=== PATIENT | male | born 1990 | race Two or more races ===

== ENCOUNTER 2024-08-22 13:42 | Emergency (ER) | payer OTHER, SELFPAY ==
[2024-08-22 13:58] VITALS: BP 132/82; PULSE 98; RESP 20; TEMP 37.3; O2SAT 94
--- NOTE | 2024-08-22 14:03 | ED_ITS ---
HPI - General Adult General Chief complaint: Shortness of Breath/Dyspnea Stated complaint: Possible pneumonia Time Seen by Provider: 08/22/24 13:57 History of Present Illness HPI narrative: Arrives with cough, SOB, and generalized pain that started on Sunday, reports his is sick as well and was diagnosed with pneumonia. Alert and oriented, VSS, ABCs intact. 33-year-old man presenting to the emergency department with concern of cough and shortness of breath and achiness. Life partner was diagnosed with pneumonia with chest x-ray taken recently in this emergency department in [place] initiated on azithromycin. Since spouse had received 2 tablets of azithromycin emergency department, there were 2 left in her packet and so Maurizio has taken 2 tablets. Maurizio is concerned that he also has pneumonia. Most troubling for Maurizio is the cough and the phlegm in particular that is present in his throat; not exactly sore throat. Lots of headache with coughing. Achy all over. Has not specifically measured fever. No diarrhea. No rash. Related Data Home Medications ?Medication ?Instructions ?Recorded ?Confirmed No Known Home Medications 08/22/2408/05 Allergies Allergy/AdvReac Type Severity Reaction Status Date / Time No Known Drug Allergies Allergy Verified 08/22/24 13:53 Review of Systems Status of ROS: Reports: 6 or more systems reviewed and unremarkable except as noted in History and below [facility] Social History Smoking Status: Never smoker How often do you have a drink containing alcohol: 2-3 times a week AUDIT-C Alcohol total score: 3 Non-prescribed substance use: denies use Exam Narrative: Exam Narrative: Pleasant. Seems uncomfortable. Sounds congested in the nasopharynx. Some rhinorrhea. Lungs are clear. Heart in elevated rate but regular rhythm. No murmur rub or gallop. Oropharynx is moist. Some erythema posteriorly. Cobblestoning. Skin is warm a little clammy about the upper back. Well- perfused peripherally. No edema. Eyes are injected. Const: Vital Signs, click to edit/add: Vital Signs - 24 hr 08/22/24 13:58 Temperature 99.1 F Pulse Rate [Pulse Oximeter] 98 Respiratory Rate 20 Blood Pressure [Ri ght Upper Arm] 132/82 Pulse Oximetry 94 Oxygen Delivery Me thod Room Air Documenting provider has reviewed patient's vital signs: yes Course Vital Signs Vital signs: Initial Vital Signs Temperature 99.1 F 08/22/24 13:58 Temperature Source Temporal Artery Scan 08/22/24 13:58 Pulse Rate 98 08/22/24 13:58 Respiratory Rate 20 08/22/24 13:58 Blood Pressure 132/82 08/22/24 13:58 Blood Pressure Mean 98 08/22/24 13:58 Pulse Oximetry 94 08/22/24 13:58 Oxygen Delivery Method Room Air 08/22/24 13:58 Vital Signs Temperature 99.1 F 08/22/24 13:58 Pulse Rate 98 08/22/24 13:58 Respiratory Rate 20 08/22/24 13:58 Blood Pressure 132/82 08/22/24 13:58 Pulse Oximetry 94 08/22/24 13:58 Oxygen Delivery Method Room Air 08/22/24 13:58 Temperature 99.1 F 08/22/24 13:58 Pulse Rate 98 08/22/24 13:58 Respiratory Rate 20 08/22/24 13:58 Blood Pressure 132/82 08/22/24 13:58 Pulse Oximetry 94 08/22/24 13:58 Oxygen Delivery Method Room Air 08/22/24 13:58 Medical Decision Making MDM Narrative Medical decision making narrative: Looks like he might have influenza or influenza like illness although we have not seen any of that lately. Certainly could have pneumonia with symptoms starting a few days ago. Otherwise URI NOS. Would screen for COVID influenza and RSV. I did discuss doing a chest x-ray to confirm or allay his fears of pneumonia but he was reluctant. Oxygen saturations are little suppressed. Vitals are stable over time in the emergency department. Swabs are negative. He has already started azithromycin. At this point I would consider continuing the course though not my preference for monotherapy. See patient discharge plan for further discussion Stay well-hydrated. Consider sleeping under the mist of a cool mist humidifier. Menthol vapors might be helpful. Sleep with head of bed elevated. Sucking on ice chips might help with some of the throat irritation. Could also try [id number]-nau-cfmadod lozenges or throat sprays like Sucrets or Chloraseptic. You have already started on a course of azithromycin. Next dosing for you would be tomorrow. I will continue that course though I think in particular prednisone as anti-inflammatory and pseudoephedrine as decongestant to help with cough will be most helpful to you. You can buy pseudoephedrine [id number]. I like the 12 hour formulation. 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 Also [id number] you can purchase guaifenesin to help with mucus thinning and cough. Lab Data Lab results reviewed: Yes I reviewed the patient's lab results Labs: Lab Results 08/22/24 Range/Units 14:00 SARS-CoV-2 (PCR) Negative SARS-CoV-2 (Negative) Influenza Type A (PCR) Negative PCR FLU A (Negative) Influenza Type B (PCR) Negative PCR FLU B (Negative) RSV (PCR) Negative PCR RSV (Negative) Discharge Plan Discharge Clinical Impression: URI (upper respiratory infection) Patient Disposition: Home w/ Parent or Adult Condition: Stable Additional Instructions: Stay well-hydrated. Consider sleeping under the mist of a cool mist humidifier. Menthol vapors might be helpful. Sleep with head of bed elevated. Sucking on ice chips might help with some of the throat irritation. Could also try [id number] lozenges or throat sprays like Sucrets or Chloraseptic. You have already started on a course of azithromycin. Next dosing for you would be tomorrow. I will continue that course though I think in particular prednisone as anti-inflammatory and pseudoephedrine as decongestant to help with cough will be most helpful to you. You can buy pseudoephedrine [id number]. I like the 12 hour formulation. 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 Also [id number] you can purchase guaifenesin to help with mucus thinning and cough. Mant?ngase jayla hidratado. Considere dormir bajo el vapor de un humidificador de vapor fr?o. Los vapores de mentol podr?an ser ?tiles. Duerma con la cabecera elevada. Chupar trozos de hielo podr?a aliviar la irritaci?n de garganta. Tambi?n puede probar pastillas o aerosoles para la garganta de venta sung, jace Sucrets o Chloraseptic. Ya pruitt comenzado un tratamiento con azitromicina. La pr?xima dosis para usted ser? ma?anabel. Continuar? con thomas tratamiento, aunque creo que la prednisona, jace antiinflamatorio, y la pseudoefedrina, jace descongestionante para la tos, le ser?n especialmente ?tiles. Puede comprar pseudoefedrina sin receta. Me gusta la f?rmula de 12 horas. Necesitar? xuan identificaci?n, jace la licencia de conducir, para obtenerla. Tambi?n puede comprar guaifenesina sin receta para ayudar con la fluidez de la mucosidad y la tos. Prescriptions: No Action No Known Home Medications Follow Up/Referrals: Provider,Not a Local [Primary Care Provider, Family Practice] Stand Alone Forms: MyHealth Info Instructions
[2024-08-22 14:41] LABS: PCR FLU A Negative PCR FLU A (Negative); PCR FLU B Negative PCR FLU B (Negative); PCR RSV Negative PCR RSV (Negative); SARS PCR* Negative SARS-CoV-2 (Negative)
== END 2024-08-22 15:15 | disposition home or self-care (01) ==
PROVIDERS: Emergency Provider Family Medicine
DX: J06.9 Acute upper respiratory infection, unspecified (principal)
CPT/HCPCS: 87631; 99282; 99283; 99284